=== PATIENT | male | born 1975 | race Asian ===

== ENCOUNTER 2023-06-07 22:26 | Emergency (ER) | payer OTHER, SELFPAY ==
[2023-06-07 22:43] VITALS: BP 166/102
[2023-06-07 23:32] LABS: Urine Albumin Negative (Neg - Trace); Urine Bilirubin 2+ (Negative); Urine Character Clear (Clear); Urine Glucose Negative (Negative); Urine Ketone Negative (Negative); Urine Leukocyte Negative (Negative); Urine Nitrite Positive (Negative); Urine Occult Blood Negative (Negative); Urine Specific Gravity 1.015 (<1.030); Urine Urobilinogen 3+ (Neg - 1+)
[2023-06-07 23:39] LABS: Urine Color Orange
[2023-06-07 23:54] LABS: Urine Bacteria Few (Negative); Urine Red Blood Cell 0-2 /HPF (0-2); Urine White Cell 0-2 /HPF (0-5)
--- NOTE | 2023-06-08 00:05 | ED.GENMED ---
History of Present Illness
General
Chief Complaint: Male Genito-Urinary Symptoms
Source: patient and spouse
Exam Limitations: none
Time Seen by Provider: 06/07/23 23:10
Nursing documentation reviewed up to this point in time: agreed with
Travel History
Have you had any contact with someone who has COVID-19?: No
Do you have any symptoms of coronavirus? Fever > 100 degrees, chills, cough, shortness of breath, sore throat, loss of taste or smell, muscle aches, or headache?: No
History of Present Illness
History of Present Illness:
48-year-old male works in [employer] nondrinker non-smoker has hypertension day or 2 of urinary burning, seen at an urgent care was given an antibiotic told to take Azo did not eat much today, thinks the Azo made him tired he feels chilled, said no
vomiting, no chest pains, no flank pain no history of kidney stones no history of diabetes no weight loss no polydipsia or polyuria
Past History
Past History
ED Past Medical History: GERD and HTN
ED Past Surgical History: Cholecystectomy
Social History
Tobacco: Non-smoker
Alcohol: None
Drug: None
Personal:
Living: with family
Employment: Employed
Review of Systems
Review of Systems
All Other Systems: Not applicable
Constitutional: Reports fatigue and chills
EENT: Reports no symptoms
Respiratory: Reports no symptoms
Cardiac: Reports no symptoms
ABD/GI: Denies abdominal pain or vomiting
: Reports dysuria and urgency; Denies flank pain, incontinence or bleeding
Musculoskeletal: Reports no symptoms
Skin: Reports no symptoms
Neurological: Reports weakness
Phy Exam
Physical Exam
Physical Exam:
Physical Exam
General: 48-year-old male nontoxic feels slightly warm
Neck: Lips are dry no intraoral
Heart: s1/s2 regular rate and rhythm, no murmur. equal radial pulses.
Lungs: no acute respiratory distress. clear bilaterally
Abdomen: Soft nontender
, noncircumcised, no balanitis, no flank pain
Neuro: alert and oriented. no focal neurological deficits
Skin: no rash
Psychiatric: well kept. interactive and cooperative
Extremities: no edema.
Course
Orders/Labs/Results
Orders:
Orders
06/07/23 23:20
Urinalysis Urgent
Date Specimen was Collected: 06/07/23
Time Specimen was Collected: 23:18
Urine Microscopic Urgent
Date Specimen was Collected: 06/07/23
Time Specimen was Collected: 23:18
Urine Culture Urgent
NARCISA Source: Urine
Specimen Description:
Obtained by: Bladder
Date Specimen was Collected: 06/07/23
Time Specimen was Collected: 23:18
06/07/23 23:59
Complete Blood Count/With Diff Urgent
Comprehensive Metabolic Panel Urgent
0.9% Sodium Chloride 1000 ml [Nss] 1,000 ml IV BOLUS
Acetaminophen [Tylenol] 1,000 mg PO NOW STA
Ketorolac [Toradol] 30 mg IV NOW STA
06/08/23 00:00
CT Abd/pel Without Iv Or Oral Urgent
Comment:
Reason For Exam: uti
06/08/23 01:31
CefTRIAXone [Rocephin] 1,000 mg IV NOW STA
Abnormal Lab Results
06/07/23 06/08/23
23:20 00:23
Hct 38.2 L %
(39.0-52.0)
MCV 78.9 L fL
(80.0-94.0)
Abs Immat Gran (auto) 0.1 H 10^3/uL
(0-0.05)
Immature Gran % 0.8 H %
(0-0.5)
Sodium 131 L mmol/L
(135-145)
Chloride 93 L mmol/L
(98-107)
Glucose 132 H mg/dl
(70-99)
Urine Nitrite Positive A
(Negative)
Urine Bilirubin 2+ A
(Negative)
Urine Urobilinogen 3+ A
(Neg - 1+)
Urine Bacteria Few A
(Negative)
06/08/23 00:23
06/08/23 00:23
Vital Signs
Initial and Last Documented VS:
Initial Vital Signs
Temp Pulse Resp BP Pulse Ox
97.7 F 97 18 166/102 98
06/07/23 22:43 06/07/23 22:43 06/07/23 22:43 06/07/23 22:43 06/07/23 22:43
Last Documented Vital Signs
Temp Pulse Resp BP Pulse Ox
97.7 F 97 18 131/89 97
06/07/23 22:43 06/07/23 22:43 06/07/23 22:43 06/08/23 01:00 06/08/23 01:00
MDM/Problems Addressed
Differential Diagnosis Includes:
Medication reaction a UTI, doubt sepsis, no history of kidney stone,
MDM/Problems Addressed:
Dysuria burning
*Critical Care Note
Total Time (30-74mins, 75-104mins- exclusive of procedures): Not Applicable
Update Note
Update Note:
1:30 AM labs noted urine noted CT noted will switch to ceftriaxone
ED Attending Note
-
Portions of this chart may have been created with voice recognition software.� Occasional wrong word or��sound alike� substitutions may have occurred due to the inherent limitations of voice recognition software.
Discharge Plan
Departure
Patient Disposition: Home (Routine Discharge)
Date of Disposition: 06/08/23
Time of Disposition: 01:33
Patient with high blood pressure during this ER visit?: No
Condition: Good
Discharge Problem:
Acute UTI
Instructions: Urinary Tract Infection, Adult ED
Prescriptions:
New
amoxicillin-pot clavulanate 875-125 mg tablet
1 tab PO Q12H Qty: 10 0RF
No Action
lisinopril 10 mg Tablet
10 mg PO DAILY
acetaminophen [acetaminophen] 325 mg tablet
650 mg PO Q4HPRN PRN (Reason: mild pain) Qty: 1 0RF
ibuprofen 200 mg tablet
400 - 600 mg PO Q6HPRN PRN (Reason: moderate pain) Qty: 1 0RF
oxycodone 5 mg tablet
5 mg PO Q4HPRN PRN (Reason: breakthrough/severe pain) Qty: 10 0RF
Referrals:
Arun Sood DO [Family Provider] - Next open appointment
Activity Restrictions/Additional Instructions:
Stop Bactrim start Augmentin twice a day
Return to the ER for worsening symptoms
Interventions
Interventions:
*Risk Screen - Suicide Last Done: 06/07/23 22:45
*General Assessment Last Done: 06/07/23 22:45
*Neglect/Abuse Screening Last Done: 06/07/23 22:45
*ED COVID-19 Vaccine History Last Done: 06/07/23 22:45
*Nursing Disposition Last Done: 06/08/23 02:17
ED-Male Genitourinary Assessment Last Done: 06/07/23 23:08
Discharge Date and Time
Discharge Date/Time: 06/08/23 02:18
[2023-06-08] MEDS: TORADOL 30 MG IV (00:16)
[2023-06-08] MEDS: TYLENOL 1000 MG PO (00:16)
[2023-06-08] MEDS: NSS 1000 IV (00:22)
[2023-06-08 00:26] VITALS: BP 153/93
[2023-06-08 00:36] LABS: % Basophils 0.5 % (0-2); % Eosinophils 1.9 % (0-6); % Immature Granulocytes 0.8 % (0-0.5); % Lymphocytes 28.4 % (20.5-51.1); % Neutrophils 60.4 % (42.2-75.2); Absolute Eosinophils 0.2 10^3/uL (0-0.7); Absolute Immature Granulocytes 0.1 10^3/uL (0-0.05); Absolute Lymphocytes 2.2 10^3/uL (1.2-3.4); Absolute Monocytes 0.6 10^3/uL (0.1-0.6); Absolute Neutrophils 4.7 10^3/uL (1.4-6.5); Hematocrit 38.2 % (39.0-52.0); Hemoglobin 13.3 g/dL (13.0-18.0); Mean Corp Hgb Conc. 34.8 g/dL (33.0-37.0); Mean Corpuscular Hgb 27.5 pg (27.0-31.0); Mean Corpuscular Volume 78.9 fL (80.0-94.0); Mean Platelet Volume 8.9 fL (7.4-10.4); Nucleated Red Blood Cells % 0 % (-); Platelet Count 273 10^3/uL (130-400); Red Blood Cell Count 4.84 10^6/uL (4.70-6.10); Red Cell Dist. Width 11.7 % (11.5-14.5); White Blood Cell Count 7.8 10^3/uL (4.8-10.8)
[2023-06-08 00:46] LABS: ALT (SGPT) 18 U/L (0-50); AST (SGOT) 21 U/L (17-59); Albumin 4.2 g/dl (3.5-5.0); Alkaline Phosphatase 50 U/L (38-126); Blood Urea Nitrogen 13 mg/dl (9-20); Calcium 9.8 mg/dl (8.4-10.2); Carbon Dioxide 28 mmol/L (22-30); Chloride 93 mmol/L (98-107); Glucose 132 mg/dl (70-99); Potassium 3.6 mmol/L (3.5-5.1); Sodium 131 mmol/L (135-145); Total Bilirubin 0.8 mg/dl (0.2-1.3); Total Protein 6.7 g/dl (6.3-8.2); eGFR > 60.00
[2023-06-08 01:00] VITALS: BP 131/89
[2023-06-08] MEDS: ROCEPHIN 1000 MG IV (01:43)
== END 2023-06-08 02:18 | disposition home or self-care (01) ==
LOC: EMR 22:26
PROVIDERS: EMERGENCY PHYSICIAN Emergency Medicine; FAMILY PHYSICIAN Family Medicine
DX: N39.0 Urinary tract infection, site not specified (principal)
CPT/HCPCS: 99284; 96374; 96375; 96361; 74176; 80053; 81003; 81015; 85025; 87086